=== PATIENT | male | born 1985 | race Two or more races ===

== ENCOUNTER 2021-03-16 06:52 | Day surgery (SDC) | payer OTHER ==
[~2021-03-16 06:52] MED LIST: COZAAR50 MG PO
== END 2021-03-16 16:35 | disposition home or self-care (01) ==
LOC: CIR.AMB 06:52
PROVIDERS: ATTEND Colon & Rectal Surgery
DX: L05.91 Pilonidal cyst without abscess (principal); Z20.822 Contact with and (suspected) exposure to COVID-19

== ENCOUNTER → 2021-03-22 | Emergency (ER) | payer OTHER ==
[~2021-03-22] VITALS: Ht 162.6 cm; Wt 86.2 kg
== END | disposition home or self-care (01) ==
LOC: ER 12:56
DX: L76.22 Postprocedural hemorrhage of skin and subcutaneous tissue following other procedure (principal); Y83.8 Other surgical procedures as the cause of abnormal reaction of the patient, or of later complication, without mention of misadventure at the time of the procedure; Y92.098 Other place in other non-institutional residence as the place of occurrence of the external cause

== ENCOUNTER 2021-03-30 13:24 | Inpatient (IN) | payer OTHER ==
[~2021-03-30] VITALS: Ht 162.6 cm; Wt 86.2 kg
[2021-04-03] MEDS ORDERED: OMEGA-3 ACID ETH1 GM (10:57)
== END 2021-04-04 12:39 | disposition home or self-care (01) | DRG 863 ==
LOC: ER 13:24 → SURH 16:46 → SURG 16:46
PROVIDERS: ADMIT Colon & Rectal Surgery; ATTEND Colon & Rectal Surgery
DX: T81.49XA Infection following a procedure, other surgical site, initial encounter (principal); L05.01 Pilonidal cyst with abscess; B96.1 Klebsiella pneumoniae [K. pneumoniae] as the cause of diseases classified elsewhere; B96.20 Unspecified Escherichia coli [E. coli] as the cause of diseases classified elsewhere; I10 Essential (primary) hypertension